=== PATIENT | female | born 1990 | race Caucasian/White ===

== ENCOUNTER 2018-02-09 22:23 | Emergency (ER) | payer SELFPAY ==
[2018-02-09 23:10] LABS: APPEARANCE,URINE CLEAR; BILIRUBIN,URINE NEGATIVE (NEGATIVE); COLOR,URINE STRAW; GLUCOSE, URINE NEGATIVE (NEGATIVE); KETONES,URINE NEGATIVE (NEGATIVE); LEUKOCYTE ESTERASE,URINE NEGATIVE (NEGATIVE); NITRITE,URINE NEGATIVE (NEGATIVE); PROTEIN,URINE NEGATIVE (NEGATIVE); URINE SPECIFIC GRAVITY 1.004; UROBILINOGEN,URINE NEGATIVE mg/dL (<2.0)
[2018-02-09] MEDS ORDERED: LIDOCAINE 1%/EPINEPHRINE INJ 20 ML VIAL INJ ONE (23:53)
[2018-02-09] MEDS ORDERED: HYDROMORPHONE HCL INJ/PF 2 MG/ML AMPULE IM ONE (23:53)
[2018-02-09] MEDS ORDERED: DOXYCYCLINE HYCLATE 100 MG TABLET PO ONE (23:53)
[2018-02-10 00:24] LABS: ABSOLUTE BASOPHILS # (AUTO) 0.1 10^3/uL (0.0-0.2); ABSOLUTE EOSINOPHILS # (AUTO) 0.2 10^3/uL (0.0-0.6); ABSOLUTE LYMPHOCYTES (AUTO) 2.3 10^3/uL (0.5-4.7); ABSOLUTE MONOCYTES (AUTO) 0.6 10^3/uL (0.1-1.4); ABSOLUTE NEUT (AUTO) 10.4 10^3/uL (1.7-8.2); BASOPHILS % (AUTO) 0.6 % (0-2); EOSINOPHILS % (AUTO) 1.8 % (0-6); HEMATOCRIT 40.1 % (36.0-47.0); HEMOGLOBIN 13.6 g/dL (12.0-15.5); MEAN CORPUSCULAR HEMOGLOBIN 30.1 pg (27.0-33.4); MEAN CORPUSCULAR VOLUME 89 fl (80-97); MONOCYTES % (AUTO) 4.2 % (3-13); PLATELET COUNT 230 10^3/uL (150-450); RED BLOOD COUNT 4.52 10^6/uL (3.72-5.28); RED CELL DISTRIBUTION WIDTH 14.3 % (11.5-14.0); SEGMENTED NEUTROPHILS % (AUTO) 76.4 % (42-78); TOTAL CELLS COUNTED % (AUTO) 100 %; WHITE BLOOD COUNT 13.6 10^3/uL (4.0-10.5)
[2018-02-10 00:43] LABS: ANION GAP 9 (5-19); BLOOD UREA NITROGEN 9 mg/dL (7-20); CARBON DIOXIDE 27 mmol/L (22-30); CHLORIDE 106 mmol/L (98-107); GLUCOSE 126 mg/dL (75-110); POTASSIUM 3.7 mmol/L (3.6-5.0); SODIUM 141.6 mmol/L (137-145)
[2018-02-10] MEDS ORDERED: FUROSEMIDE 40 MG TABLET PO ONE (00:50)
[2018-02-10] MEDS ORDERED: LIDOCAINE 2% JELLY 5 ML TUBE TOP ONE (00:50)
[2018-02-10] MEDS ORDERED: HYDROCODONE/ACETAMINOPHEN 5-325 MG (6 TAB/ER DISP) PO PRN (00:56)
--- NOTE | 2018-02-10 00:56 | ER Document Report ---
ED General - General Chief Complaint: Flank Pain Stated Complaint: FLANK PAIN,POSSIBLE ABSCESS Time Seen by Provider: 02/09/18 23:44 Notes: Patient is a 27-year-old female presents with 2 different complaints. First complaint is that she was discharged from [facility] on Saturday after being admitted for pyelonephritis. Because up on Saturday she had some pain in her right flank and back. They told her if her pain did not improve a lot the next couple days or she has recurrent fevers that she should return to ER. She also received several liters of fluids while she was in the hospital and said because that she developed lower extremity edema they told her if her edema does not improve over the next couple days to also go to the nearest hospital. Patient said her temperature was 101. Here in triage is 99. She is a little hypertensive but says whenever she has pain she is always hypertensive. Patient is on Cefdinir ear. She said she has a new source of infection that she has a abscess forming over her pelvic region. She has had these in the past which have required drainage. This is performed over last couple days. She denies any vomiting. No dysuria. No significant abdominal pain. No cough or congestion. She is not diabetic. No other complaints at this time. She had a CT scan performed at the outside hospital which did not show evidence of kidney stone. TRAVEL OUTSIDE OF THE [place] IN LAST 30 DAYS: No - Related Data Allergies/Adverse Reactions: ciprofloxacin Allergy (Verified 02/09/18 23:05) iodine Allergy (Verified 02/09/18 23:05) ketorolac [From Toradol] Allergy (Verified 02/09/18 23:05) latex Allergy (Verified 02/09/18 23:05) prochlorperazine [From Compazine] Allergy (Verified 02/09/18 23:05) Sulfa (Sulfonamide Antibiotics) Allergy (Verified 02/09/18 23:05) Past Medical History - Social History Smoking Status: Current Every Day Smoker Frequency of alcohol use: None Drug Abuse: None Family History: Arthritis, CVA, DM, Hypertension Patient has suicidal ideation: No Patient has homicidal ideation: No - Past Medical History Cardiac Medical History: Reports: Hx Hypertension - pt state BP only up when in pain or stressed. Neurological Medical History: Reports: Hx Migraine Renal/ Medical History: Reports: Hx Ovarian Cysts - pcos. Denies: Hx Peritoneal Dialysis Musculoskeltal Medical History: Reports Hx Musculoskeletal Deformity Psychiatric Medical History: Reports: Hx Depression Past Surgical History: Reports: Hx Tonsillectomy - Immunizations Immunizations up to date: Yes Hx Diphtheria, Pertussis, Tetanus Vaccination: Yes Review of Systems - Review of Systems Notes: My Normal Review Basic REVIEW OF SYSTEMS: CONSTITUTIONAL : Fever EENT: Denies eye, ear, throat, or mouth pain or symptoms. Denies nasal or sinus congestion. CARDIOVASCULAR: Denies chest pain. RESPIRATORY: Denies cough, cold, or chest congestion. Denies shortness of breath, difficulty breathing, or wheezing. GASTROINTESTINAL: Denies abdominal pain. Denies nausea, vomiting, or diarrhea. Denies constipation. Last BM: GENITOURINARY: Recent pyelonephritis. Continued right flank pain. MUSCULOSKELETAL: leg Edema SKIN: Small abscess over pelvic region. NEUROLOGICAL: Denies altered mental status or loss of consciousness. Denies headache. Denies weakness or paralysis or loss of use of either side. Denies problems with gait or speech. Denies sensory or motor loss. ALL OTHER SYSTEMS REVIEWED AND NEGATIVE. Physical Exam - Vital signs Vitals: Temp Pulse Resp BP Pulse Ox 99.8 F 107 H 20 189/93 H 96 02/09/18 22:31 02/09/18 22:31 02/09/18 22:31 02/09/18 22:31 02/09/18 22:31 - Notes Notes: General Appearance: Well nourished, alert, cooperative, no acute distress, mild to moderate obvious discomfort. Obese Vitals: reviewed, See vital signs table. Head: no swelling or tenderness to the head Eyes: PERRL, EOMI, Conjuctiva clear Mouth: No decreasd moisture Neck: Supple, no neck tenderness, No thyromegaly Lungs: No wheezing, No rales, No rhonci, No accessory muscle use, good air exchange bilaterally. Heart: Normal rate, Regular rythm, No murmur, no rub Abdomen: Normal BS, soft, No rigidity, No abdominal tenderness, small amount of pain to palpation to right flank. No guarding, no rebound, no abdominal masses , no organomegaly Pelvic exam: Patient has a small abscess over the left side of the pelvic region just above the vaginal vault itself. He has approximately 3 cm surrounding erythema. There is no abscess over the vulva itself. Extremities: strength 5/5 in all extremities, good pulses in all extremities, no swelling or tenderness in the extremities, bilateral equal 2+ lower extremity pitting edema.. Skin: warm, dry, appropriate color, no rash Neuro: speech clear, oriented x 3, normal affect, responds appropriately to questions. Course - Re-evaluation Re-evalutation: 02/10/18 01:10 Abscess was incised and drained. Small amount of purulent drainage was expressed. Placement will be placed on doxycycline to help cover for staph. We will have her continue her Ceftin ear which she was started on for urinary tract infection. Her urine is clearing quite urinalysis today. She clinically looks very well. She is feeling much improved after pain medicine. She has just small amount of surrounding cellulitis so she with abscess. She does have some bilateral lower extremity edema which is equal. This is expected due to the amount of IV fluids she received in conjunction with her obesity. I do not suspect DVT as her swelling is pitting and is equal bilaterally. I will place her on a short course of Lasix with supplemental potassium. I strongly encouraged her follow-up closely with her primary care doctor week. I strongly encouraged her return to ER immediately if she has worsening swelling, fevers, worsening pain, or she feels unwell. Patient agrees with plan will be discharged home. Dictation of this chart was performed using voice recognition software; therefore, there may be some unintended grammatical errors. - Vital Signs Vital signs: Temp Pulse Resp BP Pulse Ox 99.8 F 107 H 20 189/93 H 96 02/09/18 22:31 02/09/18 22:31 02/09/18 22:31 02/09/18 22:31 02/09/18 22:31 - Laboratory Result Diagrams: 02/10/18 00:13 02/10/18 00:13 Laboratory results interpreted by me: 02/10/18 02/10/18 00:13 00:13 WBC 13.6 H RDW 14.3 H Absolute Neutrophils 10.4 H Glucose 126 H Discharge - Discharge Clinical Impression: Lower extremity edema, Abscess Condition: Good Disposition: HOME, SELF-CARE Instructions: Oral Narcotic Medication ([facility]) Additional Instructions: Please continue to take the cefdinir and also take the Doxycycline. Please stop the Cefdinir if you develop diarrhea. Please do not go out into the sun for prolonged periods of time as the Doxycycline will make your skin very sensitive to the sun. Please return to the ER immediately if you have recurrent fevers, worsening swelling, spreading redness, or if you feel that you are worsening in any way. Please follow up with your doctor this week for close reevaluation. Prescriptions: Doxycycline Hyclate 100 mg PO BID #14 capsule Furosemide [Lasix 20 mg Tablet] 20 mg PO QAM #5 tablet Potassium Chloride [K-Tab ER] 10 meq PO DAILY #5 tablet.er
[2018-02-10 01:21] VITALS: BP 185/99
== END 2018-02-10 01:20 | disposition home or self-care (01) ==
LOC: ER 22:23
PROC: 0H97XZZ Drainage of Abdomen Skin, External Approach (ICD-10-PCS; principal; 2018-02-09)
DX: L02.211 Cutaneous abscess of abdominal wall (principal); R60.9 Edema, unspecified; E66.9 Obesity, unspecified; F17.200 Nicotine dependence, unspecified, uncomplicated; Z88.3 Allergy status to other anti-infective agents; Z88.2 Allergy status to sulfonamides; Z91.040 Latex allergy status
CPT/HCPCS: 99284; 96372; 36415; 85025; 81025; 80048; 81001; 10060; J3490; J1170

== ENCOUNTER 2018-03-11 22:59 | Emergency (ER) | payer OTHER ==
[2018-03-11 23:08] VITALS: BP 187/91
[2018-03-12 00:48] LABS: ABSOLUTE BASOPHILS # (AUTO) 0.1 10^3/uL (0.0-0.2); ABSOLUTE EOSINOPHILS # (AUTO) 0.1 10^3/uL (0.0-0.6); ABSOLUTE LYMPHOCYTES (AUTO) 2.7 10^3/uL (0.5-4.7); ABSOLUTE MONOCYTES (AUTO) 0.8 10^3/uL (0.1-1.4); ABSOLUTE NEUT (AUTO) 12.2 10^3/uL (1.7-8.2); BASOPHILS % (AUTO) 0.5 % (0-2); EOSINOPHILS % (AUTO) 0.8 % (0-6); HEMATOCRIT 44.8 % (36.0-47.0); HEMOGLOBIN 15.2 g/dL (12.0-15.5); LYMPHOCYTES % (AUTO) 17.2 % (13-45); MEAN CORPUSCULAR HEMOGLOBIN 30.4 pg (27.0-33.4); MEAN CORPUSCULAR VOLUME 90 fl (80-97); MONOCYTES % (AUTO) 4.9 % (3-13); PLATELET COUNT 241 10^3/uL (150-450); RED BLOOD COUNT 5.01 10^6/uL (3.72-5.28); RED CELL DISTRIBUTION WIDTH 15.1 % (11.5-14.0); SEGMENTED NEUTROPHILS % (AUTO) 76.6 % (42-78); TOTAL CELLS COUNTED % (AUTO) 100 %; WHITE BLOOD COUNT 15.9 10^3/uL (4.0-10.5)
[2018-03-12 00:49] LABS: APPEARANCE,URINE SLIGHTLY-CLOUDY; BILIRUBIN,URINE NEGATIVE (NEGATIVE); COLOR,URINE YELLOW; GLUCOSE, URINE NEGATIVE (NEGATIVE); KETONES,URINE NEGATIVE (NEGATIVE); LEUKOCYTE ESTERASE,URINE NEGATIVE (NEGATIVE); NITRITE,URINE NEGATIVE (NEGATIVE); PROTEIN,URINE NEGATIVE (NEGATIVE); URINE SPECIFIC GRAVITY 1.024
[2018-03-12 01:03] LABS: ALANINE AMINOTRANSFERASE 27 U/L (9-52); ALBUMIN 3.9 g/dL (3.5-5.0); ALKALINE PHOSPHATASE 73 U/L (38-126); ANION GAP 13 (5-19); ASPARTATE AMINO TRANSFERASE 18 U/L (14-36); BILIRUBIN,DIRECT 0.4 mg/dL (0.0-0.4); BILIRUBIN,TOTAL 0.4 mg/dL (0.2-1.3); BLOOD UREA NITROGEN 15 mg/dL (7-20); CALCIUM 9.3 mg/dL (8.4-10.2); CARBON DIOXIDE 26 mmol/L (22-30); CHLORIDE 108 mmol/L (98-107); GLUCOSE 162 mg/dL (75-110); POTASSIUM 4.5 mmol/L (3.6-5.0); SODIUM 146.8 mmol/L (137-145); TOTAL PROTEIN 7.2 g/dL (6.3-8.2)
[2018-03-12] MEDS ORDERED: MORPHINE SULFATE 10 MG/ML INJ IV ONE ×2 (01:40→02:46)
--- NOTE | 2018-03-12 02:36 | ER Document Report ---
ED General - General Chief Complaint: Headache Stated Complaint: LEG PAIN Time Seen by Provider: 03/12/18 01:13 Mode of Arrival: Ambulatory Information source: Patient Notes: Patient presents to the Emergency department with complaints of severe lumbar spine pain. Patient has a history of back pain and is getting spinal injections for the pain. Patient states that she was injected with Solu-Medrol 4 days ago. She states that the physician performing the injection had to "poke" her numerous times because he was having difficulty. She says that now she's having a severe stabbing sensation in the lumbar area. No radiation. No alleviating or exacerbating factors. Is also having numbness to the Right lower extremity. Patient denies fever, bowel or bladder incontinence, urinary retention, saddle anesthesia, perianal anesthesia or weakness. TRAVEL OUTSIDE OF THE [place] IN LAST 30 DAYS: No - HPI Onset: Other - 4 days ago Onset/Duration: Gradual, Constant Quality of pain: Stabbing, Throbbing Severity: Moderate Pain Level: 4 Associated symptoms: None Exacerbated by: Denies Relieved by: Denies Similar symptoms previously: No Recently seen / treated by doctor: Yes - Related Data Allergies/Adverse Reactions: ciprofloxacin Allergy (Verified 02/09/18 23:05) iodine Allergy (Verified 02/09/18 23:05) ketorolac [From Toradol] Allergy (Verified 02/09/18 23:05) latex Allergy (Verified 02/09/18 23:05) prochlorperazine [From Compazine] Allergy (Verified 02/09/18 23:05) Sulfa (Sulfonamide Antibiotics) Allergy (Verified 02/09/18 23:05) Past Medical History - General Information source: Patient - Social History Smoking Status: Current Every Day Smoker Family History: Arthritis, CVA, DM, Hypertension - Past Medical History Cardiac Medical History: Reports: Hx Hypertension - pt state BP only up when in pain or stressed. Neurological Medical History: Reports: Hx Migraine Renal/ Medical History: Reports: Hx Ovarian Cysts - pcos. Denies: Hx Peritoneal Dialysis Musculoskeltal Medical History: Reports Hx Musculoskeletal Deformity Psychiatric Medical History: Reports: Hx Depression Past Surgical History: Reports: Hx Tonsillectomy - Immunizations Immunizations up to date: Yes Hx Diphtheria, Pertussis, Tetanus Vaccination: Yes Review of Systems - Review of Systems Constitutional: No symptoms reported EENT: No symptoms reported Cardiovascular: No symptoms reported Respiratory: No symptoms reported Gastrointestinal: No symptoms reported Genitourinary: No symptoms reported Female Genitourinary: No symptoms reported Musculoskeletal: Back pain Skin: No symptoms reported Hematologic/Lymphatic: No symptoms reported Neurological/Psychological: No symptoms reported -: Yes All other systems reviewed and negative Physical Exam - Vital signs Vitals: Temp Pulse Resp BP Pulse Ox 98.7 F 115 H 20 187/91 H 96 03/11/18 23:06 03/11/18 23:06 03/11/18 23:06 03/11/18 23:06 03/11/18 23:06 Interpretation: Tachycardic - Notes Notes: PHYSICAL EXAMINATION: GENERAL: Well-appearing, well-nourished and in no acute distress. HEAD: Atraumatic, normocephalic. EYES: Pupils equal round and reactive to light, extraocular movements intact, conjunctiva are normal. ENT: Nares patent, oropharynx clear without exudates. Moist mucous membranes. NECK: Normal range of motion, supple without lymphadenopathy LUNGS: Breath sounds clear to auscultation bilaterally and equal. No wheezes rales or rhonchi. HEART: Regular rate and rhythm without murmurs ABDOMEN: Soft, nontender, nondistended abdomen. No guarding, no rebound. No masses appreciated. Female : deferred Musculoskeletal: Lumbar spine tenderness to palpation. No lower extremity pitting edema. No cyanosis. NEUROLOGICAL: Cranial nerves grossly intact. Normal speech, normal gait. Decreased sensation to the RLE. Weakness to the RLE. Patient declining rectal exam to evaluate for tone. PSYCH: Normal mood, normal affect. SKIN: Warm, Dry, normal turgor, no rashes or lesions noted. Course - Re-evaluation Re-evalutation: 03/12/18 03:04 Patient has elevated WBC. Concern for epidural abscess vs hematoma. I discussed MRI options with the patient. I told the patient that she can stay in the ED until 8 AM when MRI is available at [place]. There is a risk for increasing hematoma/abscess. I offered transfer. Patient says that she prefers transfer to [facility]. I contacted [facility]. Transfer center having difficulty finding an accepting physician. Patient now stating that she wants to follow up with an urgent care clinic affiliated with her orthopedic surgeon tomorrow. Patient says that she doesn't want to get "stuck" at [facility]. She says that she doesn't have transportation and would be stranded. I told the patient she'd have to leave AMA as she can have expanding hematoma/abscess that can cause worsening neurologic symptoms including paralysis. Patient understands the risks. Patient states that she does not want to wait in the emergency department until the morning for the MRI. Patient says she's wants to go home. Patient states that she wants to leave AGAINST MEDICAL ADVICE and follow-up at the urgent care. Patient is capable of decision making. I will have her leave AMA. 03/12/18 03:25 - Vital Signs Vital signs: Temp Pulse Resp BP Pulse Ox 98.7 F 115 H 20 187/91 H 96 03/11/18 23:06 03/11/18 23:06 03/11/18 23:06 03/11/18 23:06 03/11/18 23:06 - Laboratory Result Diagrams: 03/12/18 00:05 03/12/18 00:05 Laboratory results interpreted by me: 03/12/18 03/12/18 03/12/18 00:05 00:05 00:05 WBC 15.9 H RDW 15.1 H Absolute Neutrophils 12.2 H Sodium 146.8 H Chloride 108 H Glucose 162 H Urine Urobilinogen 2.0 H Discharge - Discharge Clinical Impression: Back pain Qualifiers: Back pain location: low back pain Chronicity: acute Back pain laterality: midline Sciatica presence: without sciatica Qualified Code(s): M54.5 - Low back pain Condition: Serious Disposition: AGAINST MEDICAL ADVICE
== END 2018-03-12 03:40 | disposition left against medical advice (07) ==
LOC: ER 22:59
DX: M54.5 Low back pain (principal); R51 Headache; F17.200 Nicotine dependence, unspecified, uncomplicated; Z88.3 Allergy status to other anti-infective agents; Z91.040 Latex allergy status; Z88.2 Allergy status to sulfonamides
CPT/HCPCS: 96376; 99284; 96374; 36415; 85025; 81025; 80053; 81001; J2270

== ENCOUNTER 2018-03-14 12:05 | Emergency (ER) | payer OTHER ==
[2018-03-14 12:17] VITALS: BP 168/99
--- NOTE | 2018-03-14 12:50 | ER Document Report ---
HPI - HPI Pain Level: 5 - REPRODUCTIVE Reproductive: DENIES: : Past Medical History - Social History Family History: Arthritis, CVA, DM, Hypertension - Past Medical History Cardiac Medical History: Reports: Hx Hypertension - pt state BP only up when in pain or stressed. Neurological Medical History: Reports: Hx Migraine Renal/ Medical History: Reports: Hx Ovarian Cysts - pcos. Denies: Hx Peritoneal Dialysis Musculoskeltal Medical History: Reports Hx Musculoskeletal Deformity Psychiatric Medical History: Reports: Hx Depression Past Surgical History: Reports: Hx Tonsillectomy - Immunizations Immunizations up to date: Yes Hx Diphtheria, Pertussis, Tetanus Vaccination: Yes Vertical Provider Document - INFECTION CONTROL TRAVEL OUTSIDE OF THE [place] IN LAST 30 DAYS: No Course - Vital Signs Vital signs: Temp Pulse Resp BP Pulse Ox 98.6 F 113 H 20 168/99 H 97 03/14/18 12:10 03/14/18 12:10 03/14/18 12:10 03/14/18 12:10 03/14/18 12:10
--- NOTE | 2018-03-14 13:13 | ER Document Report ---
ED Medical Screen (RME) - General Chief Complaint: Low Back Pain Stated Complaint: BACK PAIN Time Seen by Provider: 03/14/18 12:49 Mode of Arrival: Wheelchair Information source: Patient Notes: 27-year-old female with chronic low back pain return today because of worsening of pressure and pain where she had a steroid injection in her back on March 09 [facility] by a neurosurgeon. The pain is radiating into her right lateral leg to the knee which is much worse than she has had in the past. There is no saddle anesthesia. No loss of bladder or bowel control. No fever. She left the emergency room on March 13 AGAINST MEDICAL ADVICE because she did not want to be transferred to [facility] to get an open MRI to rule out hematoma or abscess. She is above our weight limit at [place] or an MR. I spoke with radiologist here stating that she needs an MRI of the lumbar spine with contrast. She has had sciatica in the past but this is much worse. I am rechecking her lab work since she had a mildly elevated white count on the . TRAVEL OUTSIDE OF THE [place] IN LAST 30 DAYS: No - Related Data Allergies/Adverse Reactions: ciprofloxacin Allergy (Verified 03/14/18 12:06) gabapentin Allergy (Verified 03/14/18 12:06) iodine Allergy (Verified 03/14/18 12:06) ketorolac [From Toradol] Allergy (Verified 03/14/18 12:06) latex Allergy (Verified 03/14/18 12:06) prochlorperazine [From Compazine] Allergy (Verified 03/14/18 12:06) Sulfa (Sulfonamide Antibiotics) Allergy (Verified 03/14/18 12:06) Past Medical History - Social History Frequency of alcohol use: None Drug Abuse: None - Past Medical History Cardiac Medical History: Reports: Hx Hypertension - pt state BP only up when in pain or stressed. Neurological Medical History: Reports: Hx Migraine Renal/ Medical History: Reports: Hx Ovarian Cysts - pcos. Denies: Hx Peritoneal Dialysis Musculoskeltal Medical History: Reports Hx Musculoskeletal Deformity Psychiatric Medical History: Reports: Hx Depression Past Surgical History: Reports: Hx Tonsillectomy - Immunizations Immunizations up to date: Yes Hx Diphtheria, Pertussis, Tetanus Vaccination: Yes Physical Exam - Vital signs Vitals: Temp Pulse Resp BP Pulse Ox 98.6 F 113 H 20 168/99 H 97 03/14/18 12:10 03/14/18 12:10 03/14/18 12:10 03/14/18 12:10 03/14/18 12:10 Course - Vital Signs Vital signs: Temp Pulse Resp BP Pulse Ox 98.6 F 113 H 20 168/99 H 97 03/14/18 12:10 03/14/18 12:10 03/14/18 12:10 03/14/18 12:10 03/14/18 12:10
[2018-03-14] MEDS ORDERED: ACETAMINOPHEN 325 MG TABLET PO ONE (13:51)
[2018-03-14] MEDS ORDERED: TRAMADOL HCL 50 MG TABLET PO ONE (13:51)
--- NOTE | 2018-03-14 14:43 | ER Document Report ---
ED General - General Chief Complaint: Low Back Pain Stated Complaint: BACK PAIN Time Seen by Provider: 03/14/18 12:49 Mode of Arrival: Wheelchair Information source: Patient Notes: 27-year-old female presents emergency department complaint of back pain. Patient was seen in the emergency department 2 days ago and left AGAINST MEDICAL ADVICE. Patient did not want to be transferred to [facility] to get an MRI to rule out hematoma versus abscess. Patient had an epidural spinal injection done on March 09 in [place]. Patient states that afterwards she began having severe lower back pain, numbness and tingling in her right lower extremity. Patient denies any saddle anesthesia, bowel or bladder incontinence , fever, chills. Patient is able to ambulate. The radiologist was consulted here. She recommends an MRI with contrast. Unfortunately the patient is above the weight limit for the MRI table. Patient refusing transfer again. TRAVEL OUTSIDE OF THE [place] IN LAST 30 DAYS: No - HPI Onset: Last week Onset/Duration: Gradual Quality of pain: Sharp, Stabbing Severity: Severe Pain Level: 5 Associated symptoms: Chills, Fever Exacerbated by: Movement, Walking Relieved by: Denies Similar symptoms previously: No Recently seen / treated by doctor: Yes - Related Data Allergies/Adverse Reactions: ciprofloxacin Allergy (Verified 03/14/18 12:06) gabapentin Allergy (Verified 03/14/18 12:06) iodine Allergy (Verified 03/14/18 12:06) ketorolac [From Toradol] Allergy (Verified 03/14/18 12:06) latex Allergy (Verified 03/14/18 12:06) prochlorperazine [From Compazine] Allergy (Verified 03/14/18 12:06) Sulfa (Sulfonamide Antibiotics) Allergy (Verified 03/14/18 12:06) Past Medical History - General Information source: Patient - Social History Smoking Status: Current Every Day Smoker Frequency of alcohol use: None Drug Abuse: None Family History: Arthritis, CVA, DM, Hypertension Patient has suicidal ideation: No Patient has homicidal ideation: No - Past Medical History Cardiac Medical History: Reports: Hx Hypertension - pt state BP only up when in pain or stressed. Neurological Medical History: Reports: Hx Migraine Renal/ Medical History: Reports: Hx Ovarian Cysts - pcos. Denies: Hx Peritoneal Dialysis Musculoskeltal Medical History: Reports Hx Musculoskeletal Deformity Psychiatric Medical History: Reports: Hx Depression Past Surgical History: Reports: Hx Tonsillectomy - Immunizations Immunizations up to date: Yes Hx Diphtheria, Pertussis, Tetanus Vaccination: Yes Review of Systems - Review of Systems Constitutional: Chills, Fever EENT: No symptoms reported Cardiovascular: No symptoms reported Respiratory: No symptoms reported Gastrointestinal: No symptoms reported Female Genitourinary: No symptoms reported Musculoskeletal: Back pain, Muscle pain Skin: No symptoms reported Neurological/Psychological: Numbness, Tingling -: Yes All other systems reviewed and negative Physical Exam - Vital signs Vitals: Temp Pulse Resp BP Pulse Ox 98.6 F 113 H 20 168/99 H 97 03/14/18 12:10 03/14/18 12:10 03/14/18 12:10 03/14/18 12:10 03/14/18 12:10 Interpretation: Normal, Tachycardic - Notes Notes: PHYSICAL EXAMINATION: GENERAL: Well-appearing, well-nourished and in no acute distress. HEAD: Atraumatic, normocephalic. EYES: Pupils equal round and reactive to light, extraocular movements intact, conjunctiva are normal. ENT: Nares patent, oropharynx clear without exudates. Moist mucous membranes. NECK: Normal range of motion, supple without lymphadenopathy LUNGS: Breath sounds clear to auscultation bilaterally and equal. No wheezes rales or rhonchi. HEART: Regular rate and rhythm without murmurs ABDOMEN: Soft, nontender, nondistended abdomen. No guarding, no rebound. No masses appreciated. Female : deferred Musculoskeletal: No pitting or edema. No cyanosis. Lumbar spine tenderness to palpation. Patient with movement of the RLE. 2+DP/PT pulses. NEUROLOGICAL: Cranial nerves grossly intact. Normal speech, normal gait. Patient reports decreased sensation to the RLE. Patient refused rectal exam. PSYCH: Normal mood, normal affect. SKIN: Warm, Dry, normal turgor, no rashes or lesions noted. Course - Re-evaluation Re-evalutation: 03/14/18 14:50 Discussed transfer with the patient as we are unable to perform a MRI here. Patient refuses transfer again. Wants to leave AMA. Discussed risks of leaving AMA. Patient understands her condition may worsen or she may by leaving AMA. Patient is competent to make decisions. - Vital Signs Vital signs: Temp Pulse Resp BP Pulse Ox 98.6 F 113 H 20 168/99 H 97 03/14/18 12:10 03/14/18 12:10 03/14/18 12:10 03/14/18 12:10 03/14/18 12:10 Discharge - Discharge Clinical Impression: Back pain Qualifiers: Back pain location: low back pain Chronicity: acute Back pain laterality: bilateral Sciatica presence: with sciatica Sciatica laterality: sciatica of right side Qualified Code(s): M54.41 - Lumbago with sciatica, right side Referrals: SHAVON KAMARA MD [ACTIVE STAFF] - Follow up as needed
== END 2018-03-14 15:10 | disposition left against medical advice (07) ==
LOC: ER 12:05
DX: M54.41 Lumbago with sciatica, right side (principal); F17.200 Nicotine dependence, unspecified, uncomplicated; I10 Essential (primary) hypertension; Z91.040 Latex allergy status; Z88.2 Allergy status to sulfonamides; Z88.3 Allergy status to other anti-infective agents
CPT/HCPCS: 99283

== ENCOUNTER 2018-05-12 12:08 | Emergency (ER) | payer OTHER ==
--- NOTE | 2018-05-12 12:25 | ER Document Report ---
HPI - HPI Patient complains to provider of: Worsening chronic back pain Onset: Other - This week Pain Level: 5 Context: 27-year-old morbidly obese complains of increased nerve pain in her left leg from her nerve impingement at L5 that was found on MRI last week in [place]. She has tried Tylenol, tramadol without relief. She is allergic to Neurontin. She is going to be in [place] for several more days. No saddle anesthesia. She is sitting on the bed with externally rotated and flexed left knee without any complication, and she walked into the emergency department. Associated Symptoms: None Exacerbated by: Movement Relieved by: Denies - ROS ROS below otherwise negative: Yes Systems Reviewed and Negative: Yes All other systems reviewed and negative - REPRODUCTIVE Reproductive: DENIES: : Past Medical History - General Information source: Patient - Social History Smoking Status: Unknown if Ever Smoked Lives with: Family Family History: Arthritis, CVA, DM, Hypertension - Past Medical History Cardiac Medical History: Reports: Hx Hypertension - pt state BP only up when in pain or stressed. Neurological Medical History: Reports: Hx Migraine Renal/ Medical History: Reports: Hx Ovarian Cysts - pcos. Denies: Hx Peritoneal Dialysis Musculoskeletal Medical History: Reports Hx Musculoskeletal Deformity Psychiatric Medical History: Reports: Hx Depression Past Surgical History: Reports: Hx Tonsillectomy - Immunizations Immunizations up to date: Yes Hx Diphtheria, Pertussis, Tetanus Vaccination: Yes Vertical Provider Document - CONSTITUTIONAL Agree With Documented VS: Yes General Appearance: No Apparent Distress - INFECTION CONTROL TRAVEL OUTSIDE OF THE [place] IN LAST 30 DAYS: No - MUSCULOSKELETAL/EXTREMETIES Musculoskeletal/Extremeties: Tender - bilateral lumbar muscles, especially over the left SI area - NEURO Level of Consciousness: Alert Motor/Sensory: No Motor Deficit, No Sensory Deficit Deep Tendon Reflexes: Absent - Unable to obtain ankle or patellar tendons due to obesity - DERM Integumentary: No Rash Course - Re-evaluation Re-evalutation: 05/12/18 12:37 The patient is tearful when I explained to her that we would not be treating her with any oxycodone or hydrocodone. She states the tramadol and Tylenol do not help. I looked her up appropriately in the [place] controlled substance reporting system and she is gotten oxycodone No. [address] Lozano in [place] and a Marah Coleman in the [facility]. I told her I will add in a muscle relaxer which she is not taking she continue the acetaminophen and a few tramadol. I advised that she go back to her doctor in [place] if she needs something stronger for pain. 05/12/18 12:44 Since January she has gotten opiates prescribed by multiple providers in [facility], [place], [place], [place], [facility], [place]. Discharge - Discharge Clinical Impression: Exacerbation of chronic back pain, Left leg radiculopathy, Morbid obesity, Nerve impingement per pt on MR L5 Condition: Good Disposition: HOME, SELF-CARE Instructions: Low Back Pain ([facility]), Muscle Relaxers ([facility]), Radiculopathy ([facility]), Warm Packs ([facility]) Additional Instructions: warm compress see your doctor for further pain medication to er if any worsening of the syptoms Prescriptions: Tramadol HCl [Ultram] 50 mg PO Q4HP PRN #10 tablet PRN Reason: Cyclobenzaprine HCl [Flexeril 10 Mg Tablet] 10 mg PO TIDP PRN #20 tablet PRN Reason:
[2018-05-12 12:26] VITALS: BP 155/103
== END 2018-05-12 12:45 | disposition home or self-care (01) ==
LOC: ER 12:08
DX: G89.29 Other chronic pain (principal); M54.9 Dorsalgia, unspecified; E66.01 Morbid (severe) obesity due to excess calories; M54.16 Radiculopathy, lumbar region
CPT/HCPCS: 99283